=== PATIENT | male | born 1980 | race African-American/Black ===

== ENCOUNTER 2023-05-05 17:18 | Inpatient (IN) | payer OTHER ==
[2023-05-05 19:19] VITALS: BMI 38.3
[2023-05-05] MEDS ORDERED: diazePAM 5 MG TABLET PO PRN (20:19)
[2023-05-05] MEDS ORDERED: METOPROLOL TARTRATE 25 MG TABLET (FP) ONE (20:30)
[2023-05-05] MEDS: METOPROLOL TARTRATE 25 MG TABLET (FP) PO ONE (20:31)
[2023-05-05] MEDS ORDERED: BENZONATATE 200 MG CAPSULE PO PRN (21:00)
[2023-05-05] MEDS ORDERED: BENZOCAINE/MENTHOL (CHLORASEPTIC ) LOZENGE MM PRN (21:00)
[2023-05-05] MEDS ORDERED: DICYCLOMINE HCL 10 MG CAPSULE PO PRN (21:00)
[2023-05-05] MEDS ORDERED: BISMUTH SUBSALICYLATE 524 MG/30 ML PO PRN (21:00)
[2023-05-05] MEDS ORDERED: ACETAMINOPHEN 325 MG TABLET (FP) PO PRN (21:00)
[2023-05-05] MEDS ORDERED: P-EPHED 60MG/TRIPROLIDI 2.5MG TABLET PO PRN (21:00)
[2023-05-05] MEDS ORDERED: MAGNESIUM HYDROX 2400MG/30ML ORAL SUSPENSION 30 ML CUP PO PRN (21:00)
[2023-05-05] MEDS ORDERED: LOPERAMIDE HCL 2 MG CAPSULE PO PRN (21:00)
[2023-05-05] MEDS ORDERED: MAG HYDROX/AL HYDROX/SIMETH 30 ML UNIT-DOSE CUP PO PRN (21:00)
[2023-05-05] MEDS ORDERED: POLYETHYLENE GLYCOL (HEALTHYLAX) 3350 17 GM PACKET PO PRN (21:00)
[2023-05-05] MEDS ORDERED: guaiFENesin 600 MG TABLET.ER (FP) PO PRN (21:00)
[2023-05-05] MEDS ORDERED: IBUPROFEN 400 MG TABLET (FP) PO PRN (21:00)
[2023-05-05] MEDS ORDERED: ONDANSETRON *ODT* 4 MG TABLET SL PRN (21:00)
[2023-05-05] MEDS ORDERED: IBUPROFEN 600 MG TABLET (FP) PO ONE (21:09)
[2023-05-05] MEDS: IBUPROFEN 600 MG TABLET (FP) PO PRN (21:11)
[2023-05-05] MEDS: THIAMINE 100 MG TABLET PO SCH (22:05)
[2023-05-05] MEDS: METHOCARBAMOL 500 MG TABLET PO PRN (22:05)
[2023-05-05] MEDS: MELATONIN 5 MG TABLETS PO SCH (22:05)
[2023-05-05] MEDS: hydrOXYzine PAMOATE 25 MG CAPSULE (FP) PO PRN (22:06)
[2023-05-05] MEDS: diazePAM 5 MG TABLET PO SCH (22:06)
[2023-05-06] MEDS: diazePAM 5 MG TABLET PO SCH (05:29)
[2023-05-06] MEDS: PRENATAL VITAMINS W/ FOLIC ACID TABLET (FP) PO SCH (10:03)
[2023-05-06 12:02] LABS: HEMATOCRIT 46.8 % (35.4-49); HEMOGLOBIN 15.1 GM/dL (11.7-16.9); MCHC 32.2 g/dl (32.0-35.9); MEAN CELL VOLUME 83.7 fl (80-96); MEAN PLT VOLUME 8.8 fl (7.5-11.1); PLATELET COUNT 207 10^3/uL (134-434); RBC 5.59 M/mm3 (4.00-5.60); RDW 14.7 % (11.9-15.9); WHITE BLOOD COUNT 5.3 K/mm3 (4.0-10.0)
[2023-05-06 12:05] LABS: CHLORIDE 99 mmol/L (98-107); POTASSIUM 3.9 mmol/L (3.5-5.1); SODIUM 137 mmol/L (136-145)
[2023-05-06 12:10] LABS: ALBUMIN 3.8 g/dl (3.4-5.0); ANION GAP 7 mmol/L (4-13); BLOOD UREA NITROGEN 13.7 mg/dL (7-18); CALCIUM 9.4 mg/dL (8.5-10.1); CO2 30 mmol/L (21-32); GLUCOSE,RANDOM 88 mg/dL (74-106)
[2023-05-06 12:13] LABS: SGOT/AST 35 U/L (15-37); SGPT/ALT 37 U/L (13-61)
[2023-05-06 12:14] LABS: CREATININE 1.2 mg/dL (0.55-1.3)
[2023-05-06 12:15] LABS: TOT PROT 7.1 g/dl (6.4-8.2)
[2023-05-06 12:18] LABS: ALK PHOS 71 U/L (45-117); BILIRUBIN,TOTAL 1.3 mg/dL (0.2-1)
[2023-05-06] MEDS: FLU VACCINE (FLULAVAL) PF 60 MCG/0.5 ML SYRINGE 2023-2024 IM ONE (13:19)
[2023-05-07] MEDS: diazePAM 5 MG TABLET PO ONE (05:23)
[2023-05-07 06:01] VITALS: RESP 19
[2023-05-07 09:14] VITALS: BP 145/93; PULSE 79; TEMP 97.3
== END 2023-05-07 10:05 | disposition home or self-care (01) | DRG 775 ==
LOC: YASAS 17:18 → Y3N 21:03
PROVIDERS: ADMIT Allergy & Immunology; ATTEND Surgery
PROC: HZ2ZZZZ Detoxification Services for Substance Abuse Treatment (ICD-10-PCS; principal; 2023-05-05)
DX: F10.230 Alcohol dependence with withdrawal, uncomplicated (principal); F17.210 Nicotine dependence, cigarettes, uncomplicated; M54.50 Low back pain, unspecified; G89.29 Other chronic pain
CPT/HCPCS: 36415; 80053; 80307; 85027; 86780; 90686; 93005; 93010; G0008